=== PATIENT | male | born 1990 | race Caucasian/White ===

== ENCOUNTER → 2018-01-07 13:49 | Emergency (ER) | payer BC ==
[~2018-01-07 13:49] MED LIST: Ibuprofen TAB* 600 MG PO ONE
--- NOTE | 2018-01-07 15:30 | ED ---
Throat Pain/Nasal Congestion - HPI Summary HPI Summary: Pt. is a 27 y.o male who presents to the ER for cough and nasal congestion x 2- 3 days. Pt. states on Thursday he started with a sore throat that has since resolved. He denies fever, chills, abd. pain, N/V/D. No significant past medical hx. Pt. states he has tried mucinex and flonase without relief. Symptoms are mild in severity. No current modifying factors. - History of Current Complaint Chief Complaint: EDGeneral Time Seen by Provider: 01/07/18 14:41 Hx Obtained From: Patient - Allergies/Home Medications Allergies/Adverse Reactions: Allergies Allergy/AdvReac Type Severity Reaction Status Date / Time MS Cefuroxime [From Ceftin] Allergy Intermediate Hives Verified 01/07/18 13:58 pseudoephedrine Allergy Unknown Verified 01/07/18 13:58 [From Sudafed] Reaction Details PMH/Surg Hx/FS Hx/Imm Hx Previously Healthy: Yes Psychiatric History: Reports: Hx of Violent Episodes Against Others Denies: Hx Eating Disorder Infectious Disease History: No Infectious Disease History: Denies: Traveled Outside the [place] in Last 30 Days - Family History Known Family History: Positive: Other - alcohol abuse - father - Social History Occupation: Employed Full-time Lives: With Family Alcohol Use: None Substance Use Type: Reports: None Smoking Status (MU): Never Smoked Tobacco Review of Systems Constitutional: Negative Eyes: Negative Positive: Nasal Discharge Cardiovascular: Negative Positive: Cough Gastrointestinal: Negative Musculoskeletal: Negative Skin: Negative Neurological: Negative All Other Systems Reviewed And Are Negative: Yes Physical Exam Triage Information Reviewed: Yes Vital Signs On Initial Exam: Initial Vitals Temp Pulse Resp BP Pulse Ox 97.9 F 84 16 131/89 98 01/07/18 13:58 01/07/18 13:58 01/07/18 13:58 01/07/18 13:58 01/07/18 13:58 Vital Signs Reviewed: Yes Appearance: Positive: Well-Appearing - Pt. sitting on bed in NAD> Skin: Positive: Warm, Dry Head/Face: Positive: Normal Head/Face Inspection Eyes: Positive: Normal, EOMI ENT: Positive: TMs normal, Other - Marked nasal congestion noted. NO pain over frontal or maxillary sinuses. Tonsils are enlarged bilaterally without erythema or excudates. Uvula is midline. Pt. denies sore throat, suspect chronic. Neck: Positive: Supple, Nontender Respiratory/Lung Sounds: Positive: Clear to Auscultation, Breath Sounds Present Cardiovascular: Positive: Normal, RRR Neurological: Positive: Normal, CN Intact II-III Psychiatric: Positive: Affect/Mood Appropriate Diagnostics - Vital Signs Vital Signs Temp Pulse Resp BP Pulse Ox 01/07/18 13:58 97.9 F 84 16 131/89 98 - Laboratory Lab Statement: Any lab studies that have been ordered have been reviewed, and results considered in the medical decision making process. EENT Course/Dx - Course Course Of Treatment: Pt. presenting for cough and nasal congestion. He is afebrile and well appearing. Benign examine. Suspect viral etiology. Will treat concervatively. He was given a dose of motrin. Advised motrin at home and can continue mucinex and flonase. INcrease fluid and rest. Close f.u with PCP and return to ER if sxs change or worsen. - Differential Diagnoses Differential Diagnoses: Allergic Rhinitis, Conjunctivitis, Otitis Externa, Otitis Media, Pharyngitis, URI/Bronchitis - Diagnoses Provider Diagnoses: Viral syndrome Discharge - Sign-Out/Discharge Documenting (check all that apply): Patient Departure - Discharge Plan Condition: Good Disposition: HOME Patient Education Materials: Upper Respiratory Infection (ED) Referrals: Newton Gutierrez MD [Primary Care Provider] - Additional Instructions: Schedule a follow up appointment with PCP Continue flomax and mucinex as directed Increase fluids and rest Recommend motrin 600mg every 6-8 hours x 1 week Return to ER if symptoms change or worsen - Billing Disposition and Condition Condition: GOOD Disposition: Home
[2018-01-07 15:38] VITALS: BP 117/63
== END | disposition home or self-care (01) ==
LOC: ED 13:49
DX: B34.9 Viral infection, unspecified (principal)
CPT/HCPCS: 99282; A9270-GY